=== PATIENT | male | born 1945 | race Caucasian/White ===

== ENCOUNTER → 2019-12-31 | Outpatient (CLI) | payer OTHER, MEDICARE ==
[~2019-12-31] MED LIST: ADULT LOW DOSE81 MG PO; ALIGN4 MG PO; ALPRAZOLAM PO; BACTRIM OR; CO Q-1010 MG PO; FAMOTIDINE OR; FERREX-150 PLU150 MG PO; HYDROCODONE PO; LIPITOR20 MG PO; LORTAB 5 MG/5001 TA1 PO; LOVENOX SQ; MOM PO; NEOSPORIN OINTM15 GM; PERCOCET 5-3251 EACH PO; PHISOHEX148 ML; SENOKOT-S1 TA1 PO; TOPROL XL100 MG PO; TOPROL XL25 MG PO; TUMS CHEWA500 MG/11 PO; TYLENOL P.M. E1 EAC3 OR; UNICOMPLEX M TA1 TA1 PO; ZEGERID 20 MG1 EACH PO; ZOCOR 20 MG TAB20 M1 PO
== END ==
LOC: SJCVCIMAG 08:45
PROVIDERS: ATTEND Internal Medicine Cardiovascular Disease
DX: I25.810 Atherosclerosis of coronary artery bypass graft(s) without angina pectoris (principal); I10 Essential (primary) hypertension; E78.00 Pure hypercholesterolemia, unspecified; E78.5 Hyperlipidemia, unspecified; Z79.82 Long term (current) use of aspirin; Z79.899 Other long term (current) drug therapy; Z82.49 Family history of ischemic heart disease and other diseases of the circulatory system; Z95.1 Presence of aortocoronary bypass graft

== ENCOUNTER → 2020-06-10 | Outpatient (CLI) | payer OTHER, MEDICARE | LOC: SJCVC 10:50 | PROVIDERS: ATTEND Internal Medicine Cardiovascular Disease | DX: R94.31 Abnormal electrocardiogram [ECG] [EKG] (principal); I25.10 Atherosclerotic heart disease of native coronary artery without angina pectoris; I10 Essential (primary) hypertension; E78.00 Pure hypercholesterolemia, unspecified; R60.9 Edema, unspecified; R00.1 Bradycardia, unspecified; I45.10 Unspecified right bundle-branch block; Z95.1 Presence of aortocoronary bypass graft ==

== ENCOUNTER → 2020-12-16 | Outpatient (CLI) | payer OTHER, MEDICARE | LOC: SJCVC 10:21 | PROVIDERS: ATTEND Internal Medicine Cardiovascular Disease | DX: I25.10 Atherosclerotic heart disease of native coronary artery without angina pectoris (principal); R94.31 Abnormal electrocardiogram [ECG] [EKG]; I45.10 Unspecified right bundle-branch block; I10 Essential (primary) hypertension; E78.00 Pure hypercholesterolemia, unspecified; R60.9 Edema, unspecified; R79.89 Other specified abnormal findings of blood chemistry; E78.5 Hyperlipidemia, unspecified; Z12.5 Encounter for screening for malignant neoplasm of prostate; Z95.1 Presence of aortocoronary bypass graft; Z98.61 Coronary angioplasty status; Z88.8 Allergy status to other drugs, medicaments and biological substances; Z79.82 Long term (current) use of aspirin; Z79.899 Other long term (current) drug therapy; Z82.49 Family history of ischemic heart disease and other diseases of the circulatory system ==

== ENCOUNTER → 2021-05-13 | Outpatient (CLI) | payer OTHER, MEDICARE ==
[~2021-05-13] MED LIST changes: +ASA81BEC PO; +ATORVASTATIN CA80 MG PO; +IBUPROFEN200 M1 PO; +KRILL OIL 3501 EACH PO; +LEVOTHYROXINE50 MCG PO; +METOPROLOL TAR100 MG PO; +MULTIPLE VITAM1 EAC2 PO; +NEURONTIN 300M300 M2 PO; +PREGABALIN150 MG PO; +VITAMIN B122500 MCG PO; +VITAMIN C500 M2 PO; +VITAMIN D3125 MC1 PO
[2021-05-13 11:43] LABS: HEMATOCRIT 37.5 % (42.0-52.0); HEMOGLOBIN 12.3 gm/dL (14.0-18.0); MCH 30.8 pg (26.0-34.0); MCHC 32.9 g/dL (28.0-37.0); MCV 93.6 fL (80.0-100.0); RBC 4.01 mil/uL (4.50-6.00); RDW 13.3 % (10.5-14.5); WBC 7.9 thou/uL (4.0-11.0)
[2021-05-13 11:51] LABS: URINE BILIRUBIN NEGATIVE (Negative); URINE BLOOD NEGATIVE (Negative); URINE CLARITY CLEAR; URINE COLOR YELLOW; URINE GLUCOSE-RANDOM* NEGATIVE (Negative); URINE KETONES NEGATIVE (Negative); URINE LEUKOCYTES-REFLEX NEGATIVE (Negative); URINE NITRITE-REFLEX NEGATIVE (Negative); URINE PROTEIN (DIPSTICK) NEGATIVE (Negative); URINE SPECIFIC GRAVITY 1.025 (1.005-1.035); URINE UROBILINOGEN 0.2 E.U./dl (0.2-1.0)
[2021-05-13 11:54] LABS: INR 0.94; PROTIME 10.3 Seconds (10.5-12.1)
[2021-05-13 11:57] LABS: ALBUMIN 4.1 g/dL (3.4-5.0); CALCIUM 8.9 mg/dL (8.5-10.1); CREATININE 1.1 mg/dL (0.7-1.3); POTASSIUM 4.5 mmol/L (3.5-5.1)
== END | disposition home or self-care (01) ==
LOC: PAC 07:46
PROVIDERS: ATTEND Orthopaedic Surgery
DX: Z01.818 Encounter for other preprocedural examination (principal)

== ENCOUNTER 2021-05-24 06:05 | Inpatient (IN) | payer OTHER, MEDICARE ==
[~2021-05-24] VITALS: Ht 167.6 cm; Wt 75.7 kg
[2021-05-24 07:51] VITALS: BP 129/74
[2021-05-24 12:14] VITALS: BP 120/62
--- NOTE | 2021-05-24 15:35 | NUR ---
LEFT HIP OA, had surgery today. Deondre visited with stephanie at bedside. Intro to cm, and dcp. A & o x 4 and able to make his needs know. Lives at home with his in 2 story home. 2 steps to enter and stairs inside. Independent prior to surgery. Manage own medication, No dme prior to suregy. Has outpatient physical therapy set up at [facility] for 05/26/21 per Stephanie. He will require a walker for dc and is agreeable to use provider plus.
[2021-05-24 15:41] VITALS: BP 114/59
--- NOTE | 2021-05-24 16:03 | NUR ---
PT WORKED WITH PHYSICAL THERAPY TODAY. CLEO DRESSING ON LEFT HIP. DRESSING C/D/I. PT AFEBRILE, ADEQUATE UOP, NO BM, GOOD APPETITE. PT AND UPDATED AND EDUCATED ON PT CONDITION AND POC. PT PROGRESSING TOWARDS POC.
[2021-05-24 19:20] VITALS: BP 96/45
[2021-05-24 23:47] VITALS: BP 89/53
--- NOTE | 2021-05-25 04:36 | NUR ---
ASSUMED CARE OF PT AT 1900. PT IS A/O X4 AND IS UP WITH ASSISTANCE FOLLOWING PROCEDURE TO LEFT HIP. ROOM AIR. VSS. AFEBRILE. MEDICATIONS GIVEN PER MAR. FALL PRECAUTIONS IN PLACE, CALL LIGHT IS WITHIN REACH. PT IS PROGRESSING TOWARDS PLAN OF CARE DC GOALS.
[2021-05-25 05:24] VITALS: BP 114/61
[2021-05-25 08:16] VITALS: BP 109/66
[2021-05-25 10:55] VITALS: BP 109/66
--- NOTE | 2021-05-25 11:42 | NUR ---
PT DC HOME TODAY AFTER BEING CLEARED BY PHYSICAL THERAPY AND OROTHOPEDICS. PT AND HAVE BEEN THOUROUGHLY EDUCATED ON DC HOME INSTRUCTIONS. PT PROGRESSED TOWARDS POC.
--- NOTE | 2021-05-27 10:49 | O ---
[facility] [place] [address] OPERATIVE REPORT Name: TALHA MCDANIEL Room #: 447-P [facility] IN M.R.#: [id number] Admission: 05/24/21 Attend Phys: Ramy Marrufo MD Discharge: 05/25/21 Date of : 47 Report #: [id number] THIS REPORT FOR: cc: Hever Birch MD, Logan F. MD Abraham, Scott M. MD ~ DATE OF SERVICE: 05/24/2021 PREOPERATIVE DIAGNOSIS: Left hip osteoarthritis. POSTOPERATIVE DIAGNOSIS: Left hip osteoarthritis. PROCEDURE: Left total hip arthroplasty. SURGEON: Ramy Marrufo MD UNIT MANAGER: Samara Yanez PA-C. INDICATION FOR UNIT MANAGER: Throughout the case, extensive retraction and manipulation of the hip including dislocation and reduction was required. This was afforded to me by my cook's assistant. ANESTHESIA: LMA. IMPLANTS: A [employer] size 56 R3 acetabular cup with 2 acetabular screws, a size 17 high offset Synergy cemented stem, a size 40-3 cobalt chrome head. ESTIMATED BLOOD LOSS: 200 mL. COMPLICATIONS: None. SPECIMENS: None. CONDITION UPON LEAVING THE OR: Stable. INDICATIONS FOR PROCEDURE: The patient a 75-year-old gentleman with severe left hip osteoarthritis. He had failed conservative measures for this and after discussion with him, he elected for left total hip arthroplasty. DESCRIPTION OF PROCEDURE: Risks, benefits, alternatives, complications were discussed in detail with the patient including but not limited to risk of anesthesia, risk of damage to nerves, arteries, blood vessels, risk for infection, bleeding, risk for leg length discrepancy, instability and need for reoperation. Informed consent was obtained from the patient. The left hip was appropriately marked in the preoperative holding area. IV Ancef was given for [facility] [address] [place] [address] OPERATIVE REPORT Name: TALHA MCDANIEL Room #: 447-P [facility] IN .R.#: [id number] Admission: 05/24/21 Attend Phys: Ramy Marrufo MD Discharge: 05/25/21 Date of : 47 Report #: [id number] preoperative antibiotics. He was brought to the operating room and placed in supine position on the operating table. LMA anesthesia was induced without complication. He was then placed in the right lateral decubitus position with the left hip uppermost. Left hip and lower extremity were prepped and draped in normal sterile fashion. Timeout was performed properly identifying the patient and procedure as well as the instrumentation and implants. All in the operating room in agreement. A standard posterior approach to the left hip was made with 10 blade through the skin. Dissection was taken down to fascia with Bovie cautery and Dutta elevator was used to clean off the fascia. A fresh 10 blade was used to make a fascial incision. This was taken proximally and distally with curved Gamboa scissor. Charnley retractor was placed. Trochanteric bursa was taken down with Bovie cautery. Piriformis tendon was identified, tagged and taken down with Bovie cautery. Short external rotators were also taken down with Bovie cautery. A capsulotomy was made and capsule ends were tagged for later repair. Hip was dislocated. There was extensive osteoarthritic change of the femoral head. Femoral neck cut was made 1 cm proximal to the lesser trochanter based on preoperative templating and the femoral head was removed. Deep acetabular retractors were placed. Labrum was removed sharply. Pulvinar was removed with Bovie cautery. Acetabulum was then sequentially reamed up to a size 56, at which point there was excellent bleeding cancellous bone. A size 55 trial cup was placed, found to have a good fit. A final size 56 R3 acetabular cup was placed and seated. Two acetabular screws were placed for backup fixation and a polyethylene liner for a 40 head was placed and attention was turned to the femur. This was reamed and broached up to a size 17 at which point the size 17 broach still had some instability, we attempted to ream up to 18, but in fact, I felt we are at risk of fracture so we ultimately decided for cementing 17 stem. The broach was left in place and a high offset neck with a 40+0 head was placed. Hip was reduced, taken through range of motion, found to be stable, found to have equal leg lengths. Hip was dislocated. Broach was removed and final size 17 high offset Synergy cemented stem was cemented in place using standard cementation techniques. While the cement cured, a periarticular injection consisting of morphine, ropivacaine, epinephrine, Toradol was placed around the hip joint and capsule. After the cement cured, this was trialed with a 40-3 head. Hip was reduced, taken through range of motion, found to be stable, found to have equal leg lengths. Hip was dislocated one last time and a final size 40-3 cobalt chrome head was placed. Hip was reduced, taken through range of motion, found to be stable, found to have equal leg lengths. Hip joint was thoroughly irrigated with normal saline. A gram of vancomycin was placed deep in the joint. The capsule and piriformis were repaired with 0 FiberWire and fascia was closed with 0 Vicryl. Skin was closed with 2-0 Vicryl, skin staple and a CLEO dressing was applied. The patient [place] [id number] OPERATIVE REPORT Name: TALHA MCDANIEL Room #: 447-P [facility] IN M.R.#: [id number] Admission: 05/24/21 Attend Phys: Ramy Marrufo MD Discharge: 05/25/21 Date of : 47 Report #: [id number] tolerated this procedure well and went to recovery room under care of anesthesia postoperatively. <ELECTRONICALLY SIGNED> By: Ramy Marrufo MD 05/27/21 1049 [id number] Ramy Marrufo MD /nt
== END 2021-05-25 11:31 | disposition home or self-care (01) | DRG 470 ==
LOC: OR → TBA 06:06 → OR 08:09 → 4S 12:02 → OR 14:02 → 4S 16:23
PROVIDERS: ADMIT Orthopaedic Surgery; ATTEND Orthopaedic Surgery
PROC: 0SRB029 Replacement of Left Hip Joint with Metal on Polyethylene Synthetic Substitute, Cemented, Open Approach (ICD-10-PCS; principal; 2021-05-24)
DX: M16.12 Unilateral primary osteoarthritis, left hip (principal); Z20.822 Contact with and (suspected) exposure to COVID-19; Z88.8 Allergy status to other drugs, medicaments and biological substances; Z79.899 Other long term (current) drug therapy
CPT/HCPCS: 10102; 50010; 50101; 50382; 50414; 51057; 51132; 51225; 51226; 51412; 53000; 53078; 53367; 56460; 56524; 56528; 56530; 57095; 57103; 62110; 62900; 70005

== ENCOUNTER → 2021-06-21 | Outpatient (CLI) | payer OTHER, MEDICARE | LOC: SJCVC 13:03 | PROVIDERS: ATTEND Internal Medicine Cardiovascular Disease | DX: R94.31 Abnormal electrocardiogram [ECG] [EKG] (principal); I45.10 Unspecified right bundle-branch block; I25.10 Atherosclerotic heart disease of native coronary artery without angina pectoris; I10 Essential (primary) hypertension; E78.00 Pure hypercholesterolemia, unspecified; R60.9 Edema, unspecified; Z79.82 Long term (current) use of aspirin; Z79.899 Other long term (current) drug therapy; Z88.8 Allergy status to other drugs, medicaments and biological substances; Z98.61 Coronary angioplasty status ==